=== PATIENT | male | born 1965 | race Caucasian/White ===

== ENCOUNTER 2022-09-24 08:58 | Emergency (ER) | payer MEDICAID ==
[~2022-09-24] VITALS: Ht 175.3 cm; Wt 110.0 kg
[2022-09-24 09:09] VITALS: BP 180/102
[2022-09-24 09:34] LABS: CLARITY URINE CLOUDY (CLEAR); COLOR URINE ORANGE (YELLOW); KETONES URINE 1+ (NEGATIVE); LEUKOCYTE ESTERASE URINE 2+ (NEGATIVE); NITRITE URINE POSITIVE (NEGATIVE); OCCULT BLOOD URINE 3+ (NEGATIVE); PH URINE 6.5 (4.5-8.0); PROTEIN URINE 2+ (NEGATIVE); SPECIFIC GRAVITY URINE 1.019 (1.005-1.030); UROBILINOGEN URINE 0.2 E.U./dL (0.2-1.0)
[2022-09-24 10:05] LABS: HEMATOCRIT. 42.1 % (42.0-52.0); HEMOGLOBIN. 14.4 g/dL (14.0-18.0); MEAN CORPUSCULAR HEMOGLOBIN 29.7 pg (28.0-32.0); MEAN CORPUSCULAR VOLUME 86.7 fL (80.0-94.0); MEAN PLATELET VOLUME 7.4 fl (7.4-10.4); PLATELET 264 x1000/uL (130-400); RED BLOOD CELL COUNT 4.85 mill/uL (4.7-6.1); RED CELL DISTRIBUTION WIDTH 13.5 % (11.6-14.6)
[2022-09-24 10:06] LABS: CHLORIDE 92 mEq/L (98-107)
[2022-09-24] MEDS ORDERED: CEFP200T13 MT (10:29)
[2022-09-24] MEDS ORDERED: CEFTRIAXONE SODIUM 1 G/VIAL IM ONE (10:30)
[2022-09-24 10:50] LABS: PLATELET ESTIMATE NORMAL
== END 2022-09-24 11:23 | disposition home or self-care (01) ==
LOC: ER 08:58
DX: R33.9 Retention of urine, unspecified (principal); R10.30 Lower abdominal pain, unspecified; I10 Essential (primary) hypertension; E11.9 Type 2 diabetes mellitus without complications
CPT/HCPCS: 36415; 51702; 80053; 81003; 85025; 87077; 87086; 87186; 96372; 99284; J0696; A4315

== ENCOUNTER 2022-11-06 10:36 | Inpatient (IN) | payer MEDICAID ==
[~2022-11-06] VITALS: Ht 177.8 cm; Wt 102.3 kg
[~2022-11-06 10:36] MED LIST: CEFP200T13 MT
[2022-11-06 13:54] LABS: HEMATOCRIT. 37.4 % (42.0-52.0); HEMOGLOBIN. 12.6 g/dL (14.0-18.0); MEAN CORPUSCULAR HEMOGLOBIN 28.9 pg (28.0-32.0); MEAN CORPUSCULAR VOLUME 85.8 fL (80.0-94.0); MEAN PLATELET VOLUME 7.4 fl (7.4-10.4); PLATELET 364 x1000/uL (130-400); RED BLOOD CELL COUNT 4.36 mill/uL (4.7-6.1); RED CELL DISTRIBUTION WIDTH 14.7 % (11.6-14.6)
[2022-11-06 13:56] LABS: CHLORIDE 102 mEq/L (98-107)
[2022-11-06 14:19] LABS: PLATELET ESTIMATE NORMAL
[2022-11-06] MEDS ORDERED: SODIUM CHLORIDE 0.9% 1000ML BAG (SEPSIS BOLUS) IV NR (15:15)
[2022-11-06] MEDS ORDERED: CEFTRIAXONE 1 G PREMIX 50 ML IV NR (15:15)
[2022-11-06 15:47] LABS: CLARITY URINE TURBID (CLEAR); COLOR URINE YELLOW (YELLOW); KETONES URINE TRACE (NEGATIVE); LEUKOCYTE ESTERASE URINE 3+ (NEGATIVE); NITRITE URINE POSITIVE (NEGATIVE); OCCULT BLOOD URINE TRACE (NEGATIVE); PH URINE 5.5 (4.5-8.0); PROTEIN URINE 1+ (NEGATIVE); SPECIFIC GRAVITY URINE 1.014 (1.005-1.030); UROBILINOGEN URINE 0.2 E.U./dL (0.2-1.0)
[2022-11-06 16:01] LABS: INR 1.2
[2022-11-06] MEDS: KETOROLAC 30MG/ML VIAL IV NR (16:47)
[2022-11-06] MEDS: CEFTRIAXONE 1 G PREMIX 50 ML IV ONE ×2 (16:48→17:10)
[2022-11-07] MEDS: KETOROLAC 30MG/ML VIAL IV NR (01:46)
[2022-11-07 10:00] VITALS: BP 122/80
[2022-11-07 12:00] VITALS: BP 122/60
[2022-11-07] MEDS ORDERED: BETH5TAB10 PO (12:13)
[2022-11-07] MEDS ORDERED: METF500T60 MT (12:13)
[2022-11-07] MEDS ORDERED: LISI20TA31 MT (12:13)
[2022-11-07] MEDS ORDERED: GLYB5TAB7 MT (12:13)
[2022-11-07] MEDS ORDERED: TAMS-11 PO (12:13)
[2022-11-07] MEDS ORDERED: CEFTRIAXONE 1 G PREMIX 50 ML IV SCH (13:00)
[2022-11-07] MEDS: HYDROCODONE/ACETAMINOPHEN 5/325MG TABLET PO PRN ×2 (13:08→21:21)
[2022-11-07] MEDS ORDERED: POTASSIUM CHLORIDE 20MEQ TABLET SR PO NR (13:15)
[2022-11-07] MEDS ORDERED: ONDANSETRON HCL 4MG/2ML INJ IV PRN (13:15)
[2022-11-07] MEDS ORDERED: DEXTROSE 50% WATER 50ML SYRINGE IV PRN (13:15)
[2022-11-07] MEDS ORDERED: NALOXONE HCL 0.4MG/ML VIAL IV PRN (13:15)
[2022-11-07] MEDS: TAMSULOSIN HCL 0.4MG SR CAPSULE PO SCH (13:18)
[2022-11-07] MEDS: FINASTERIDE 5MG TABLET PO SCH (13:18)
[2022-11-07] MEDS: CEFTRIAXONE 1,000 MG in DEXTROSE 5% WATER 50 ML IV SCH (14:51)
[2022-11-07 16:00] VITALS: BP 118/87
[2022-11-07] MEDS: BLOOD SUGAR DIAGNOSTIC STRIP TEST SCH ×2 (16:38→21:10)
[2022-11-07] MEDS: INSULIN LISPRO 100 UNITS/ML SUBCUT SCH ×2 (16:39→21:23)
[2022-11-07 20:00] VITALS: BP 125/74
[2022-11-08] VITALS: BP 126/82
[2022-11-08 04:00] VITALS: BP 132/72
[2022-11-08] MEDS: HYDROCODONE/ACETAMINOPHEN 5/325MG TABLET PO PRN ×2 (05:49→12:56)
[2022-11-08] MEDS: INSULIN LISPRO 100 UNITS/ML SUBCUT SCH ×2 (05:50→13:07)
[2022-11-08] MEDS: BLOOD SUGAR DIAGNOSTIC STRIP TEST SCH ×2 (06:10→11:40)
[2022-11-08 08:00] VITALS: BP 116/75
[2022-11-08] MEDS: FINASTERIDE 5MG TABLET PO SCH (10:05)
[2022-11-08] MEDS: TAMSULOSIN HCL 0.4MG SR CAPSULE PO SCH (10:06)
[2022-11-08 10:44] LABS: BASOPHILS % 0.2 % (0.0-2.0); HEMOGLOBIN. 10.7 g/dL (14.0-18.0); LYMPHOCYTES % 11.2 % (20.0-50.0); MEAN CORPUSCULAR VOLUME 86.6 fL (80.0-94.0); MEAN PLATELET VOLUME 7.8 fl (7.4-10.4); MONOCYTES % 5.9 % (2.0-8.0); NEUTROPHILS % 81.7 % (40.0-76.0); PLATELET 280 x1000/uL (130-400); RED CELL DISTRIBUTION WIDTH 14.7 % (11.6-14.6)
[2022-11-08 11:03] LABS: CHLORIDE 105 mEq/L (98-107)
[2022-11-08] MEDS: CEFTRIAXONE 1,000 MG in DEXTROSE 5% WATER 50 ML IV SCH (14:09)
[2022-11-08 15:55] VITALS: BP 120/80
[2022-11-08] MEDS ORDERED: LEVO-65 MT (16:29)
[2022-11-11 04:08] LABS: NEISSERIA GONORRHOEAE NAA Negative (Negative)
== END 2022-11-08 16:26 | disposition home or self-care (01) | DRG 720 ==
LOC: ER 10:36 → 7EST 21:36 → EDBEDREQ 23:53 → EDBEDREQTM 23:53
PROVIDERS: ADMIT Internal Medicine; ATTEND Internal Medicine
DX: A41.9 Sepsis, unspecified organism (principal); E11.65 Type 2 diabetes mellitus with hyperglycemia; N45.2 Orchitis; I10 Essential (primary) hypertension; E66.9 Obesity, unspecified; E87.6 Hypokalemia; Z20.822 Contact with and (suspected) exposure to COVID-19; N39.0 Urinary tract infection, site not specified; N40.1 Benign prostatic hyperplasia with lower urinary tract symptoms; Z79.899 Other long term (current) drug therapy; Z68.32 Body mass index [BMI] 32.0-32.9, adult
CPT/HCPCS: 36415; 71045; 76870; 80048; 80053; 81003; 82962; 83605; 83615; 84145; 85025; 87077; 87186; 87426; 87491; 87591; 93005; 93976; 99285; C9803; J0696; J1815; J1885; J7060

== ENCOUNTER 2025-08-30 16:49 | Emergency (ER) | payer SELFPAY ==
[~2025-08-30] VITALS: Ht 177.8 cm; Wt 106.0 kg
[~2025-08-30 16:49] MED LIST changes: +BETH5TAB10 PO; +GLYB5TAB7 MT; +LEVO-65 MT; +LISI20TA31 MT; +METF500T60 MT; +TAMS-54 PO
[2025-08-30 16:54] VITALS: O2SAT 98
[2025-08-30] MEDS ORDERED: VALA100044 MT (17:26)
[2025-08-30] MEDS ORDERED: P20 PO (17:26)
[2025-08-30 18:17] VITALS: BP 105/71; PULSE 85; RESP 16; TEMP 36.7; O2SAT 98
[2025-08-30] MEDS: PREDNISONE 20MG TABLET PO ONE (18:17)
== END 2025-08-30 18:18 | disposition home or self-care (01) ==
LOC: ER 16:49
DX: G51.0 Bell's palsy (principal); E11.9 Type 2 diabetes mellitus without complications; E78.00 Pure hypercholesterolemia, unspecified; I10 Essential (primary) hypertension; Z79.899 Other long term (current) drug therapy
CPT/HCPCS: 99283